=== PATIENT | male | born 1950 | race Caucasian/White ===

== ENCOUNTER 2019-11-28 08:24 | Emergency (ER) | payer OTHER ==
[~2019-11-28] VITALS: Ht 185.4 cm; Wt 98.2 kg
[2019-11-28] MEDS ORDERED: ONDANSETRON ODT 4 MG TAB.RAPDIS PO ONE (08:45)
--- NOTE | 2019-11-28 08:55 | PHYS DOC ---
Past History Past Medical History: Diabetes, High Cholesterol, Hypertension, NE Past Surgical History: Pacemaker, Other Additional Past Surgical Histo: left knee replacement; bilat shoulders; left knee x7; R hand x 4; L hand Smoking: Non-smoker Alcohol Use: Rarely Drug Use: None Adult General Chief Complaint Chief Complaint: MECHANICAL FALL HPI HPI Patient is a 69-year-old male who presents with report of fall with head injury. Patient reportedly was witnessed falling, having slipped and fell backwards, striking his head. Patient reportedly had loss of consciousness for THOUGHT to be about 30 seconds. Upon arrival, patient is complaining of headache that he rates at a 6 out of 10. He states that when he moves the headache is worse. He also complains of left shoulder and right knee pain. He is not aware of any neck or back pain. Injury occurred just prior to arrival.[] Review of Systems Review of Systems Constitutional: Denies fever or chills [] Respiratory: Denies cough or shortness of breath [] Cardiovascular: No additional information not addressed in HPI [] Musculoskeletal: Complains of left shoulder and right knee pain [] Integument: Denies rash or skin lesions [] Neurologic: Complains of headache without focal weakness or sensory changes [] All other systems were reviewed and found to be within normal limits, except as documented in this note. Current Medications Current Medications Current Medications Medications (Trade) Dose Ordered Sig/Joesph Start Time Stop Time Status Last Admin Dose Admin Fentanyl Citrate (Fentanyl 2ml Vial) 75 mcg 1X ONCE 11/28/19 08:45 11/28/19 08:46 DC Ondansetron HCl (Zofran Odt) 4 mg 1X ONCE 11/28/19 08:45 11/28/19 08:46 DC Allergies Allergies Allergies Coded Allergies Type Severity Reaction Last Updated Verified metformin Allergy Intermediate 11/28/19 Yes niacin Allergy Intermediate 11/28/19 Yes Physical Exam Physical Exam Constitutional: Well developed, well nourished, no acute distress, non-toxic appearance. [] HENT: Normocephalic, atraumatic, bilateral external ears normal, oropharynx moist, no oral exudates, nose normal. [] Eyes: PERRLA, EOMI, conjunctiva normal, no discharge. [] Neck: Normal range of motion, no tenderness, supple. [] Cardiovascular: Regular rate and rhythm[] Lungs & Thorax: Bilateral breath sounds clear to auscultation [] Abdomen: Bowel sounds normal, soft, no tenderness. [] Skin: Warm, dry, no erythema, no rash. [] Extremities: Right knee demonstrates tenderness to palpation anteriorly. Left shoulder demonstrates tenderness on palpation and decreased range of motion due to pain. [] Neurologic: Alert and oriented X 3, no focal deficits noted. [] Current Patient Data Vital Signs Vital Signs Date Time Temp Pulse Resp B/P (MAP) Pulse Ox O2 Delivery O2 Flow Rate FiO2 11/28/19 08:33 97.6 78 20 100 Room Air EKG EKG [] Radiology/Procedures Radiology/Procedures [] Impressions: PROCEDURE: CT HEAD AND CERVICAL SPINE WO Examination: CT HEAD AND CERVICAL SPINE WO History: Fall, pain Comparison/Correlation: None Findings: Axial images of the head were obtained without contrast. Axial images of the cervical spine were also obtained. Sagittal and coronal reformatted images of the cervical spine were provided. Ventricles are normal size. No intracranial hemorrhage, midline shift, or mass effect. The globes and nerves are unremarkable. Patchy opacification of the ethmoid air cells is noted greater on the right. Opacification of the right maxillary sinuses are partially seen. Minimal opacification of the left maxillary sinus is seen. Opacified degenerative remodeling is present. Moderate C5-6 disc space narrowing is present. Spurring of bony encroachment on the neural foramina is evident bilaterally. Multilevel facet joint degenerative remodeling is mild. No acute fracture or bone destruction. Visualized soft tissues are normal. Impression: Degenerative changes. No fracture or malalignment. No intracranial hemorrhage. Chronic paranasal sinusitis. PQRS Compliance Statement: One or more of the following individualized dose reduction techniques were utilized for this examination: 1. Automated exposure control 2. Adjustment of the mA and/or kV according to patient size 3. Use of iterative reconstruction technique Electronically signed by: Gustavo Bailey MD (11/28/2019 9:24 AM) [facility] DICTATED AND SIGNED BY: GUSTAVO BAILEY MD DATE: 11/28/19923 CC: JIHAN FONSECA Jr. DO; JULIO FALCON MD ~ PROCEDURE: KNEE RIGHT 3V Examination: KNEE RIGHT 3V, SHOULDER 2+V LEFT History: Fall, pain Comparison/Correlation: None Findings: 3 images of the left shoulder were obtained. Left-sided pacemaker with associated leads noted. Mild degenerative changes acromioclavicular joint is noted. Mild spurring of the glenohumeral joint. No fracture or bony destruction. Total 3 images of the right knee were obtained. Spurring is tricompartmental and situation. Small knee joint effusion is present. Patellofemoral compartment remodeling is present. Mild lateral compartment narrowing is present. Impression: No fracture or bony destruction. Moderate degenerative changes involving the right knee. Right knee joint effusion. Mild degenerative changes involving the left shoulder. Electronically signed by: Gustavo Bailey MD (11/28/2019 9:27 AM) [facility] DICTATED AND SIGNED BY: GUSTAVO BAILEY MD DATE: 11/28/19926 CC: JIHAN FONSECA Jr. DO; JULIO FALCON MD ~ Course & Med Decision Making Course & Med Decision Making Pertinent Labs and Imaging studies reviewed. (See chart for details) [] Dragon Disclaimer Dragon Disclaimer This electronic medical record was generated, in whole or in part, using a voice recognition dictation system. Departure Departure: Impression: Primary Impression: Closed head injury Additional Impressions: Right knee sprain Contusion of shoulder, left Disposition: HOME, SELF-CARE Condition: STABLE Referrals: JULIO FALCON MD (PCP) Patient Instructions: Contusion, Form - Excuse from Work, School, or Physical Activity, Head Injury, Adult, Knee Sprain Scripts Tramadol Hcl (TRAMADOL HCL) 50 Mg Tablet 50 MG PO PRN Q6HRS PRN for PAIN, #12 TAB Prov: JIHAN FONSECA Jr. DO 11/28/19 Diclofenac Sodium (DICLOFENAC SODIUM) 50 Mg Tablet.dr 1 TAB PO BID PRN for PAIN, #20 TAB Prov: JIHAN FONSECA Jr. DO 11/28/19 Problem Qualifiers Primary Impression: Closed head injury Encounter type: initial encounter Qualified Codes: S09.90XA - Unspecified injury of head, initial encounter Additional Impressions: Right knee sprain Encounter type: initial encounter Involved ligament of knee: unspecified ligament Qualified Codes: S83.91XA - Sprain of unspecified site of right knee, initial encounter Contusion of shoulder, left Encounter type: initial encounter Qualified Codes: S40.012A - Contusion of left shoulder, initial encounter JIHAN FONSECA Jr. DO Nov 28, 2019 08:55
--- NOTE | 2019-11-28 09:27 | RAD ---
Examination: CT HEAD AND CERVICAL SPINE WO History: Fall, pain Comparison/Correlation: None Findings: Axial images of the head were obtained without contrast. Axial images of the cervical spine were also obtained. Sagittal and coronal reformatted images of the cervical spine were provided. Ventricles are normal size. No intracranial hemorrhage, midline shift, or mass effect. The globes and nerves are unremarkable. Patchy opacification of the ethmoid air cells is noted greater on the right. Opacification of the right maxillary sinuses are partially seen. Minimal opacification of the left maxillary sinus is seen. Opacified degenerative remodeling is present. Moderate C5-6 disc space narrowing is present. Spurring of bony encroachment on the neural foramina is evident bilaterally. Multilevel facet joint degenerative remodeling is mild. No acute fracture or bone destruction. Visualized soft tissues are normal. Impression: Degenerative changes. No fracture or malalignment. No intracranial hemorrhage. Chronic paranasal sinusitis. PQRS Compliance Statement: One or more of the following individualized dose reduction techniques were utilized for this examination: 1. Automated exposure control 2. Adjustment of the mA and/or kV according to patient size 3. Use of iterative reconstruction technique Electronically signed by: Gustavo Spears MD (11/28/2019 9:24 AM) [facility]
--- NOTE | 2019-11-28 09:30 | RAD ---
Examination: KNEE RIGHT 3V, SHOULDER 2+V LEFT History: Fall, pain Comparison/Correlation: None Findings: 3 images of the left shoulder were obtained. Left-sided pacemaker with associated leads noted. Mild degenerative changes acromioclavicular joint is noted. Mild spurring of the glenohumeral joint. No fracture or bony destruction. Total 3 images of the right knee were obtained. Spurring is tricompartmental and situation. Small knee joint effusion is present. Patellofemoral compartment remodeling is present. Mild lateral compartment narrowing is present. Impression: No fracture or bony destruction. Moderate degenerative changes involving the right knee. Right knee joint effusion. Mild degenerative changes involving the left shoulder. Electronically signed by: Gustavo Spears MD (11/28/2019 9:27 AM) [facility]
[2019-11-28] MEDS ORDERED: TRAM50TA PO (09:36)
[2019-11-28] MEDS ORDERED: DICL50TA4 PO (09:36)
[2019-11-28] MEDS ORDERED: HYDR-3165 PO (09:39)
[2019-11-28 10:00] VITALS: BP 134/82
== END 2019-11-28 10:00 | disposition home or self-care (01) ==
LOC: ER 08:24
DX: S06.9X1A Unspecified intracranial injury with loss of consciousness of 30 minutes or less, initial encounter (principal); S83.91XA Sprain of unspecified site of right knee, initial encounter; S40.012A Contusion of left shoulder, initial encounter; E78.00 Pure hypercholesterolemia, unspecified; I10 Essential (primary) hypertension; E11.9 Type 2 diabetes mellitus without complications; I25.2 Old myocardial infarction; W01.0XXA Fall on same level from slipping, tripping and stumbling without subsequent striking against object, initial encounter; Y93.89 Activity, other specified; Y92.89 Other specified places as the place of occurrence of the external cause; Y99.8 Other external cause status
CPT/HCPCS: 70450; 72125; 73030; 73562; 96372; 99284; J3010; Q0162